=== PATIENT | female | born 1965 ===

== ENCOUNTER 2017-03-30 08:18 | Day surgery (SDC) | payer MEDICAID ==
[2017-03-30 08:50] VITALS: BMI 22.3
[2017-03-30 09:15] VITALS: O2SAT 100
[2017-03-30] MEDS ORDERED: Propofol 10 mg/ml Inj (20 ML) ONE (11:24)
[2017-03-30] MEDS ORDERED: Lactated Ringer's 500 ML IV SCH (11:30)
[2017-03-30 12:11] VITALS: TEMP 97.5
[2017-03-30 13:44] VITALS: BP 104/56; PULSE 57; RESP 14
== END 2017-03-30 13:20 | disposition home or self-care (01) ==
LOC: C.ENDO 08:18
PROVIDERS: ATTEND Internal Medicine
DX: R10.84 Generalized abdominal pain (principal); K21.9 Gastro-esophageal reflux disease without esophagitis; K29.70 Gastritis, unspecified, without bleeding; K44.9 Diaphragmatic hernia without obstruction or gangrene; K64.8 Other hemorrhoids; Q43.8 Other specified congenital malformations of intestine
CPT/HCPCS: 43239; 45378; 88305; 88312; 88313; 88342; J2704; J3010; J7120